=== PATIENT | male | born 1955 | race Caucasian/White ===

== ENCOUNTER → 2019-10-11 | Outpatient (CLI) | payer MEDICARE ==
[~2019-10-11] MED LIST: ALLO300T PO; ASPI-515 PO; ATOR-2 PO; CHOL20002 PO; CLOP75TA PO; COLC0.6T37 PO; ETAN25KI2 PO; FOLI0.8C PO; METH2.5T PO; METO-95 PO; NABU750T PO; RANO500T2 PO; Will bring list DOS
== END | disposition home or self-care (01) ==
LOC: CVU 07:46
PROVIDERS: ATTEND Internal Medicine Cardiovascular Disease
DX: I35.8 Other nonrheumatic aortic valve disorders (principal); I25.10 Atherosclerotic heart disease of native coronary artery without angina pectoris
CPT/HCPCS: 93306; 93880